=== PATIENT | male | born 1975 | race Caucasian/White ===

== ENCOUNTER 2020-11-11 15:19 | Emergency (ER) | payer BC ==
[~2020-11-11] VITALS: Ht 177.8 cm; Wt 99.8 kg
[~2020-11-11 15:19] MED LIST: BACTRIM D.S. TAB1 EA PO
[2020-11-11 15:59] LABS: HEMOGLOBIN 16.5 gm/dl (14.0-17.5); RED BLOOD COUNT 5.9 M/UL (4.20-5.50); WHITE BLOOD COUNT 3.4 K/UL (4.5-11.0)
[2020-11-11 16:21] LABS: BUN/CREATININE RATIO 11 (0-10)
[2020-11-11] MEDS ORDERED: PROAIR HFA8.5 GM INH (17:31)
== END 2020-11-11 19:30 | disposition home or self-care (01) ==
LOC: ER1 15:19
DX: U07.1 COVID-19 (principal); J40 Bronchitis, not specified as acute or chronic; J02.9 Acute pharyngitis, unspecified; E11.9 Type 2 diabetes mellitus without complications; I10 Essential (primary) hypertension; Z88.8 Allergy status to other drugs, medicaments and biological substances
CPT/HCPCS: 0240U; 71045; 80053; 85025; 87081; 87880; 99283; M0245

== ENCOUNTER → 2021-03-30 | Day surgery (SDC) | payer BC ==
[~2021-03-30] MED LIST changes: +BUPROPION XL150 MG PO; +CRESTOR20 MG PO; +GLUCOPHAGE 500500 MG PO; +HYDROCODON-ACE1 EAC4 PO; +LEXAPRO10 MG PO; +LISINOPRIL10 MG PO; +OMEPRAZOLE20 MG PO; +PROAIR HFA8.5 GM INH; +SINGULAIR10 MG PO
== END | disposition home or self-care (01) ==
LOC: OR 06:17
DX: D17.1 Benign lipomatous neoplasm of skin and subcutaneous tissue of trunk (principal); D17.21 Benign lipomatous neoplasm of skin and subcutaneous tissue of right arm; D17.22 Benign lipomatous neoplasm of skin and subcutaneous tissue of left arm; D17.23 Benign lipomatous neoplasm of skin and subcutaneous tissue of right leg; D17.24 Benign lipomatous neoplasm of skin and subcutaneous tissue of left leg; I10 Essential (primary) hypertension; E11.9 Type 2 diabetes mellitus without complications; M46.1 Sacroiliitis, not elsewhere classified; Z79.84 Long term (current) use of oral hypoglycemic drugs; Z20.822 Contact with and (suspected) exposure to COVID-19; G47.30 Sleep apnea, unspecified
CPT/HCPCS: 82962; J0690; J1100; J2001; J2250; J2405; J2704; J3010; J7030; J7120

== ENCOUNTER → 2022-03-14 | Outpatient (CLI) | payer BC ==
[2022-03-14 10:13] LABS: HEMOGLOBIN 14.2 gm/dl (14.0-17.5); RED BLOOD COUNT 5.08 M/UL (4.20-5.50); WHITE BLOOD COUNT 4.8 K/UL (4.5-11.0)
[2022-03-14 10:39] LABS: BUN/CREATININE RATIO 14 (0-10)
[2022-03-15 07:16] LABS: VITAMIN D, 25-HYDROXY 52.5 ng/mL (30.0-100.0)
[2022-03-15 08:14] LABS: TESTOSTERONE, SERUM 235 ng/dL (264-916)
[2022-03-15 09:14] LABS: HEMOGLOBIN A1C 6.5 % (4.8-5.6)
[2022-03-16 07:12] LABS: CHOLESTEROL, TOTAL 158 mg/dL (100-199); FERRITIN 34 ng/mL (30-400); HDL CHOLESTEROL 40 mg/dL (>39); LDL CHOLESTEROL CALC 93 mg/dL (0-99); LDL/HDL RATIO 2.3 ratio (0.0-3.6); PROSTATE-SPECIFIC AG 0.6 ng/mL (0.0-4.0); TRIGLYCERIDES 141 mg/dL (0-149)
[2022-03-16 08:13] LABS: FOLATE (FOLIC ACID), SERUM 12.4 ng/mL (>3.0)
== END ==
LOC: LAB 09:50
PROVIDERS: Internal Medicine
DX: Z12.5 Encounter for screening for malignant neoplasm of prostate (principal); R06.02 Shortness of breath; E11.9 Type 2 diabetes mellitus without complications; R53.83 Other fatigue; I10 Essential (primary) hypertension; E78.5 Hyperlipidemia, unspecified; E55.9 Vitamin D deficiency, unspecified; Z79.899 Other long term (current) drug therapy
CPT/HCPCS: 36415; 71046; 80053; 80061; 82607; 82728; 82746; 83036; 84153; 84403; 84439; 84443; 85025; 87086